=== PATIENT | male | born 1945 | race Caucasian/White ===

== ENCOUNTER 2024-02-08 13:59 | Emergency (ER) | payer MEDICARE, OTHER, SELFPAY ==
[2024-02-08 14:16] VITALS: BP 154/89
[2024-02-08 16:18] LABS: % Basophils 0.6 % (0-2); % Eosinophils 1.7 % (0-6); % Immature Granulocytes 0.3 % (0-0.5); % Lymphocytes 15.3 % (20.5-51.1); % Monocytes 10.7 % (1.7-9.3); % Neutrophils 71.4 % (42.2-75.2); Absolute Eosinophils 0.1 10^3/uL (0-0.7); Absolute Monocytes 0.7 10^3/uL (0.1-0.6); Absolute Neutrophils 4.6 10^3/uL (1.4-6.5); Hematocrit 42.7 % (39.0-52.0); Hemoglobin 14.1 g/dL (13.0-18.0); Mean Corpuscular Volume 90.9 fL (80.0-94.0); Mean Platelet Volume 9.8 fL (7.4-10.4); Nucleated Red Blood Cells % 0 % (-); Platelet Count 198 10^3/uL (130-400); Red Cell Dist. Width 13.7 % (11.5-14.5); White Blood Cell Count 6.4 10^3/uL (4.8-10.8)
[2024-02-08 16:28] LABS: ALT (SGPT) 30 U/L (0-50); AST (SGOT) 37 U/L (17-59); Acetaminophen < 10 ug/ml (10-30); Albumin 4.1 g/dl (3.5-5.0); Alkaline Phosphatase 74 U/L (38-126); Blood Urea Nitrogen 22 mg/dl (9-20); Calcium 9.5 mg/dl (8.4-10.2); Carbon Dioxide 29 mmol/L (22-30); Chloride 103 mmol/L (98-107); Glucose 97 mg/dl (70-99); Potassium 4.1 mmol/L (3.5-5.1); Salicylate < 1.0 mg/dl (2.0-20.0); Sodium 139 mmol/L (135-145); Total Bilirubin 0.5 mg/dl (0.2-1.3); Total Protein 6.4 g/dl (6.3-8.2); eGFR > 60.00
[2024-02-08 16:29] LABS: Alcohol None Detected
[2024-02-08 17:03] LABS: Urine Albumin Negative (Neg - Trace); Urine Bilirubin Negative (Negative); Urine Character Clear (Clear); Urine Color Yellow; Urine Glucose Negative (Negative); Urine Ketone Negative (Negative); Urine Leukocyte Negative (Negative); Urine Nitrite Negative (Negative); Urine Occult Blood Negative (Negative); Urine Urobilinogen Negative (Neg - 1+)
[2024-02-08 17:17] LABS: Amphetamines Negative (Negative); Barbiturates Negative (Negative); Benzodiazepines Positive (Negative); Buprenorphine Negative (Negative); Cocaine Negative (Negative); Marijuana Negative (Negative); Methadone Negative (Negative); Methamphetamines Negative (Negative); Opiates Negative (Negative); Phencyclidine Negative (Negative); Tricyclic Antidepressants Negative (Negative)
[2024-02-08 17:32] LABS: Fentanyl, Urine Negative (Negative)
--- NOTE | 2024-02-08 17:41 | ED.GENMED ---
History of Present Illness
General
Chief Complaint: Crisis Evaluation
Time Seen by Provider: 02/08/24 14:36
History of Present Illness
History of Present Illness:
78-year-old male with history of hyperlipidemia and bipolar disorder presenting to the emergency department with family for concern of paranoia. Family reports issues essentially since October, however has been acutely worsening. Patient has
been perseverating on black mold in the house and paranoia that family members are going to commit suicide. Family believes that patient may have some underlying dementia, however has not been fully evaluated for it. Patient himself denies any
suicidal ideations. He denies acute medical complaint such as chest pain, difficulty breathing, abdominal pain, fever or recent illness. Denies ischial acute medical complaints
Phy Exam
Physical Exam
Physical Exam:
General: Well-appearing, no clinical signs of dehydration, nontoxic and in no acute distress
HEENT: protecting airway
Neck: appears supple
CV: Normal heart rate
Resp: No accessory muscle use, no increased work of breathing
Abd: Soft and non-distended, no tenderness to palpation, normal bowel sounds
Extremities: No deformities, no swelling
Neuro: alert, no focal neurologic deficit
: deferred
Rectal: deferred
Psych: Normal affect, paranoia
Skin: Intact
Course
Orders/Labs/Results
Orders:
Orders
02/08/24 14:22
Crisis Consult Urgent
Reason for Consult: paranoia
02/08/24 15:26
Electrocardiogram (*1) Urgent
Reason for Study: Other
Other Reason for Exam: psych
EKG- Treatment ONCE
02/08/24 16:03
Acetaminophen Urgent
Alcohol Urgent
Complete Blood Count/With Diff Urgent
Comprehensive Metabolic Panel Urgent
Salicylate Urgent
02/08/24 16:53
Fentanyl, Urine Urgent
Urinalysis Reflex To Culture Urgent
Date Specimen was Collected: 02/08/24
Time Specimen was Collected: 16:44
Urine Drug Abuse Screen Urgent
Date Specimen was Collected: 02/08/24
Time Specimen was Collected: 16:44
Abnormal Lab Results
02/08/24 02/08/24
16:03 16:53
Absolute Lymphs (auto) 1.0 L 10^3/uL
(1.2-3.4)
Absolute Monos (auto) 0.7 H 10^3/uL
(0.1-0.6)
Lymphocytes % 15.3 L %
(20.5-51.1)
Monocytes % 10.7 H %
(1.7-9.3)
BUN 22 H mg/dl
(9-20)
Salicylates < 1.0 L mg/dl
(2.0-20.0)
Acetaminophen < 10 L ug/ml
(10-30)
U Benzodiazepines Scrn Positive H
(Negative)
02/08/24 16:03
02/08/24 16:03
Vital Signs
Initial and Last Documented VS:
Initial Vital Signs
Temp Pulse Resp BP Pulse Ox
98.2 F 87 16 154/89 97
02/08/24 14:16 02/08/24 14:16 02/08/24 14:16 02/08/24 14:16 02/08/24 14:16
Last Documented Vital Signs
Temp Pulse Resp BP Pulse Ox
98.2 F 87 16 169/98 98
02/08/24 14:16 02/08/24 18:00 02/08/24 19:00 02/08/24 18:00 02/08/24 18:00
MDM/Problems Addressed
MDM/Problems Addressed:
78-year-old male with history of bipolar disorder presenting for paranoia with family. Vital signs are significant for mild hypertension.
On exam patient is resting comfortably, no acute distress or discomfort. Patient denies any suicidal ideation. He does have paranoid delusions. Concern for acute psychosis or bipolar episode. Plan for crisis evaluation. Otherwise
hemodynamically stable without acute medical complaints.
17:00 - Per crisis evaluation, patient agreeable to inpatient therapy, pending laboratory analysis and bed search for inpatient therapy
19:00 -patient accepted to a facility, pending transportation
*Critical Care Note
Total Time (30-74mins, 75-104mins- exclusive of procedures): Not Applicable
ED Attending Note
-
Portions of this chart may have been created with voice recognition software.� Occasional wrong word or��sound alike� substitutions may have occurred due to the inherent limitations of voice recognition software.
Discharge Plan
Departure
Patient Disposition: Psych Facility
Date of Disposition: 02/08/24
Time of Disposition: 19:03
Patient with high blood pressure during this ER visit?: Yes
Condition: Good
Discharge Problem:
Acute paranoia
Prescriptions:
No Action
gabapentin 100 MG capsule
100 mg PO DAILY
Livalo 1 MG tablet
0.5 mg PO DAILY
lamotrigine 150 mg Tablet
150 mg PO BID
Metamucil Tablet
1 tab PO DAILY
ferrous sulfate
1 tab PO DAILY
Patient Comments:
patient explained that he is no longer on iron pills but is getting iron infusuins instead and last infusion was 11/10/21 and also got an infusion a week prior to that
multivitamin
1 tab PO DAILY
Iron Infusion
1 dose IV PRN PRN (Reason: anemia)
Phospha 250 Neutral
250 mg PO BID
Referrals:
UNKNOWN - PT DOES,NOT KNOW [Family Provider] -
Interventions
Interventions:
*Risk Screen - Suicide Last Done: 02/08/24 14:02
*General Assessment Last Done: 02/08/24 14:16
*Neglect/Abuse Screening Last Done: 02/08/24 14:16
ED- Fall Risk Assessment Last Done: 02/08/24 15:15
ED-Psychological Assessment Last Done: 02/08/24 15:15
Discharge Date and Time
Print Language: CONGOLESE
[2024-02-08 18:00] VITALS: BP 169/98
== END 2024-02-08 19:45 ==
LOC: EMR 13:59
PROVIDERS: EMERGENCY PHYSICIAN Student in an Organized Health Care Education/Training Program
DX: F22 Delusional disorders (principal); F31.9 Bipolar disorder, unspecified; E78.5 Hyperlipidemia, unspecified
CPT/HCPCS: 99285; 80053; 80143; 80179; 80306; 80307; 81003; 82077; 85025; 93005